=== PATIENT | male | born 1985 | race Caucasian/White ===

== ENCOUNTER 2020-04-21 19:20 | Emergency (ER) | payer SELFPAY ==
[2020-04-21 19:33] VITALS: Wt 97.7 kg
[2020-04-21] MEDS ORDERED: HYDROCODON-ACE1 EAC7 PO (22:41)
[2020-04-21] MEDS ORDERED: DICLOFENAC SODI50 MG PO (22:41)
[2020-04-22 00:15] VITALS: BP 144/91
== END 2020-04-22 00:15 | disposition home or self-care (01) ==
LOC: D.ER 19:20
DX: M24.412 Recurrent dislocation, left shoulder (principal); M25.512 Pain in left shoulder